=== PATIENT | male | born 1950 | race Caucasian/White ===

== ENCOUNTER → 2016-05-01 | Outpatient (CLI) | payer MEDICARE, OTHER | LOC: COL.VAS 11:58 | DX: I82.621 Acute embolism and thrombosis of deep veins of right upper extremity (principal); I26.99 Other pulmonary embolism without acute cor pulmonale; M79.621 Pain in right upper arm; M79.89 Other specified soft tissue disorders | CPT/HCPCS: Q9967 ==

== ENCOUNTER → 2016-11-20 | Outpatient (REF) ==
[2016-11-20 20:52] LABS: PSA-TOTAL 0.61 ng/mL (0-4); THYROID STIMULATING HORMONE 1.19 uIU/mL (0.465-4.680)
== END ==
LOC: ZLAB.WCH 19:50
PROVIDERS: Internal Medicine
DX: Z01.89 Encounter for other specified special examinations (principal)
CPT/HCPCS: G0103